=== PATIENT | male | born 1975 | race Asian ===

== ENCOUNTER 2017-08-19 11:15 | Outpatient (CLI) | payer MEDICAID | END 2017-08-19 11:16 | disposition home or self-care (01) | LOC: LAB.R 11:15 | PROVIDERS: ATTEND Family Medicine | DX: R05 Cough (principal) | CPT/HCPCS: 87275; 87276 ==

== ENCOUNTER 2017-10-26 15:26 | Emergency (ER) | payer MEDICAID ==
--- NOTE | 2017-10-26 15:54 | ED Physician Documentation ---
PD HPI UPPER EXT INJURY - Stated complaint Stated Complaint: RT THUMB PX - History obtained from History obtained from: Patient - History of Present Illness Location: Other (He fell last night going on the stairs at home and caught himself with the right hand and has severe pain at the base of the right thumb, no other injuries. He also notes a four-day history of cough, congestion, sinus pressure without fevers. He does not smoke.) Review of Systems Constitutional: denies: Fever, Chills Nose: reports: Rhinorrhea / runny nose, Congestion Cardiac: denies: Chest pain / pressure Respiratory: reports: Cough GI: denies: Abdominal Pain PD PAST MEDICAL HISTORY - Past Medical History Cardiovascular: None Respiratory: Pneumonia Psych: Anxiety - Past Surgical History Past Surgical History: No - Present Medications Home Medications: Ambulatory Orders Medication Instructions Recorded Confirmed Albuterol Sulfate [Proventil Hfa 1 - 2 puffs IH Q4H PRN #1 10/26/17 Inhaler] hfa.aer.ad HYDROcod/ACETAM 5/325 [Cresco 5/325] 1 - 2 ea PO Q6H PRN #15 tablet 10/26/17 - Allergies Allergies/Adverse Reactions: Allergies Allergy/AdvReac Type Severity Reaction Status Date / Time No Known Drug Allergies Allergy Verified 04/10/16 16:15 - Social History Does the pt smoke?: No Smoking Status: Never smoker Does the pt drink ETOH?: No Does the pt have substance abuse?: No - Immunizations Immunizations are current?: Yes - POLST Patient has POLST: No PD ED PE NORMAL - Vitals Vital signs reviewed: Yes - General General: Alert and oriented X 3, No acute distress - HEENT HEENT: PERRL, EOMI, Pharynx benign - Neck Neck: Supple, no meningeal sign, No bony TTP - Cardiac Cardiac: RRR, No murmur - Respiratory Respiratory: Other (Wheezy and rhonchorous throughout without focal findings, good air movement.) - Extremities Extremities: Other (Tender at the base of the right thumb and MCP joints with some laxity of the MCL. Neurovascularly intact at the tip of the digit.) - Neuro Neuro: Alert and oriented X 3, Normal speech Results - Vitals Vitals: Vital Signs - 24 hr 10/26/17 15:35 Temperature 36.1 C L Heart Rate 74 Respiratory 17 Rate Blood Pressure 152/67 H O2 Saturation 98 Oxygen O2 Source Room air - Rads (name of study) R hand 3v Radiology: EMP read contemporaneously (NAD) Procedures - Splint (location) R hand Splint applied by: Tech Type of splint: Fiberglass, Short arm, Thumb spica Other: Patient tolerated well, No complications, Neurovascular intact PD MEDICAL DECISION MAKING - ED course ED course: 42-year-old gentleman with right thumb injury, exam is concerning for ulnar collateral ligament injury/gamekeeper's thumb. He was placed in a thumb spica splint. He also has a URI with wheezing which is treated with albuterol, no evidence of bacterial infection. Departure - Departure Disposition: 01 Home, Self Care Clinical Impression: Wheezing, Viral disease Gamekeeper's thumb of right hand Qualifiers: Encounter type: initial encounter Qualified Code(s): S53.31XA - Traumatic rupture of right ulnar collateral ligament, initial encounter Condition: Good Record reviewed to determine appropriate education?: Yes Instructions: ED URI Viral W Wheezing Follow-Up: [facility] [Provider Group] - Within 1 week Prescriptions: Albuterol Sulfate [Proventil Hfa Inhaler] 1 - 2 puffs IH Q4H PRN #1 hfa.aer.ad PRN Reason: Cough HYDROcod/ACETAM 5/325 [Cresco 5/325] 1 - 2 ea PO Q6H PRN #15 tablet PRN Reason: Pain Comments: The albuterol inhaler should help with your cough and wheezing, the painkiller will help with the hand, is also an excellent cough suppressant. Do not drink or drive with that. Keep a fiberglass splint on and dry at all times, follow up with the orthopedic clinic within the week, call them tomorrow for an appointment. Your blood pressure was elevated today on check into the emergency department. This does not mean that you have hypertension, it is a common phenomenon to come to the emergency department and have elevated blood pressure. I recommend that you see your primary care physician within the week to have it rechecked when you are feeling better. Do not drink or drive while taking narcotic pain medication. Note that many narcotic pain relievers also contain Tylenol/acetaminophen. Please ensure that your total dose of acetaminophen from all sources does not exceed 3 g (3000 mg) per day. You may get constipated while on this medication. Take a stool softener such as Colace twice a day while you are on it. Also add an [id number] laxative such as senna or MiraLAX on any day that you do not have a bowel movement. If you received a narcotic pain medication or sedative while in the emergency department, do not drive for the next 24 hours. Forms: Activity restrictions
--- NOTE | 2017-10-26 16:21 | XRAY Preliminary Report ---
Exam: XR HAND 3 VIEW RT IMPRESSION: Normal hand radiography. [facility] SITE ID: [id number]
--- NOTE | 2017-10-26 16:23 | XRAY Report ---
EXAM: RIGHT HAND RADIOGRAPHY EXAM DATE: 10/26/2017 04:09 PM. CLINICAL HISTORY: Right thumb injury. Fall. Pain. COMPARISON: None. TECHNIQUE: 3 views. FINDINGS: Bones: Normal. No fractures or bone lesions. Joints: Normal. No subluxations. Soft Tissues: Normal. No soft tissue swelling. IMPRESSION: Normal hand radiography. [facility] Referring Provider Line: [phone] SITE ID: [id number]
[2017-10-26 16:52] VITALS: BP 139/87
== END 2017-10-26 16:51 | disposition home or self-care (01) ==
LOC: ED 15:26
DX: R06.2 Wheezing (principal); B34.8 Other viral infections of unspecified site; S53.31XA Traumatic rupture of right ulnar collateral ligament, initial encounter; W10.9XXA Fall (on) (from) unspecified stairs and steps, initial encounter; Y92.009 Unspecified place in unspecified non-institutional (private) residence as the place of occurrence of the external cause; R03.0 Elevated blood-pressure reading, without diagnosis of hypertension
CPT/HCPCS: 29125; 99283

== ENCOUNTER 2018-01-13 15:55 | Emergency (ER) | payer MEDICAID ==
[2018-01-13] MEDS ORDERED: KETOROLAC 60 MG/2 ML VIAL IM STA ×2 (17:06→17:15)
[2018-01-13] MEDS ORDERED: ALBUTEROL NEB 2.5 MG/3 ML INH STA ×2 (17:09→17:37)
--- NOTE | 2018-01-13 17:09 | ED Physician Documentation ---
History of Present Illness - Stated complaint Stated Complaint: COUGH/CONGESTION - Chief complaint Chief Complaint: Resp - History obtained from History obtained from: Patient - History of Present Illness Timing: How many weeks ago (1) Pain level max: 6 Pain level now: 5 Improved by: rest Worsened by: breathing - Additonal information Additional information: Patient is a 42-year-old male who presents to the emergency department with nasal congestion, rhinorrhea, dry cough. He also complains of right thumb pain after a fall several months ago that is still intermittently swollen. Has not followed up with anyone for this. He is taking NyQuil. Review of Systems Constitutional: denies: Fever, Chills Nose: reports: Rhinorrhea / runny nose, Congestion Respiratory: reports: Cough Skin: denies: Rash Musculoskeletal: denies: Neck pain, Back pain Neurologic: denies: Headache PD PAST MEDICAL HISTORY - Past Medical History Past Medical History: Yes Cardiovascular: None Respiratory: Pneumonia Psych: Anxiety - Past Surgical History Past Surgical History: No - Present Medications Home Medications: Ambulatory Orders Medication Instructions Recorded Confirmed Albuterol Sulf [Ventolin Hfa 1 - 2 puffs INH Q4HR PRN #1 inhaler 01/13/18 Inhaler] Benzonatate [Tessalon Perle] 100 - 200 mg PO TID PRN #30 capsule 01/13/18 Cetirizine HCl/Pseudoephedrine 1 each PO BID PRN #30 tab.er.12h 01/13/18 [Zyrtec-D Tablet] - Allergies Allergies/Adverse Reactions: Allergies Allergy/AdvReac Type Severity Reaction Status Date / Time No Known Drug Allergies Allergy Verified 01/13/18 16:06 - Social History Does the pt smoke?: No Smoking Status: Never smoker Does the pt drink ETOH?: No Does the pt have substance abuse?: No - Immunizations Immunizations are current?: Yes - POLST Patient has POLST: No PD ED PE NORMAL - Vitals Vital signs reviewed: Yes - General General: Alert and oriented X 3 - HEENT HEENT: Ears normal, Moist mucous membranes, Pharynx benign - Neck Neck: Supple, no meningeal sign - Cardiac Cardiac: RRR - Respiratory Respiratory: No respiratory distress, Other (Wheezing and rhonchi bilaterally) - Abdomen Abdomen: Soft, Non tender, Non distended - Derm Derm: Warm and dry, No rash - Extremities Extremities: Other (R thumb, increased MCP laxity, mild swelling. ) - Neuro Neuro: Alert and oriented X 3 - Psych Psych: Normal mood, Normal affect Results - Vitals Vitals: Oxygen O2 Source Room air - Rads (name of study) CXR Radiology: Prelim report reviewed, EMP read contemporaneously, See rad report ( no acute disease) r thumb xray Radiology: Prelim report reviewed, EMP read contemporaneously, See rad report ( No acute findings) PD MEDICAL DECISION MAKING - ED course Complexity details: reviewed old records, reviewed results, re-evaluated patient (Lungs are clear to auscultation bilaterally after breathing treatment) , considered differential, d/w patient, d/w family ED course: Patient is a 42-year-old male who presents to the emergency department what appears to be a viral upper respiratory infection. He is well-appearing, nontoxic. Feels better after nebulizer treatment. He also appears to have a skier's thumb/gamekeeper's thumb on the right hand. Did not follow up with anyone for this, recommend that he follow-up with his doctor for an orthopedic referral to determine if this will need surgical repair. Patient counseled regarding signs and symptoms for which I believe and urgent re-evaluation would be necessary. Patient with good understanding of and agreement to plan and is comfortable going home at this time This document was made in part using voice recognition software. While efforts are made to proofread this document, sound alike and grammatical errors may occur. Departure - Departure Disposition: 01 Home, Self Care Clinical Impression: Wheezing URI (upper respiratory infection) Qualifiers: URI type: unspecified viral URI Qualified Code(s): J06.9 - Acute upper respiratory infection, unspecified Thumb pain Qualifiers: Laterality: right Qualified Code(s): M79.644 - Pain in right finger(s) Condition: Good Instructions: Skier's Thumb, ED Viral Syndrome Follow-Up: Kwan Flores DO [Primary Care Provider] - Within 1 week (if not better) Prescriptions: Albuterol Sulf [Ventolin Hfa Inhaler] 1 - 2 puffs INH Q4HR PRN #1 inhaler PRN Reason: Shortness Of Air/Wheezing Benzonatate [Tessalon Perle] 100 - 200 mg PO TID PRN #30 capsule PRN Reason: Cough Cetirizine HCl/Pseudoephedrine [Zyrtec-D Tablet] 1 each PO BID PRN #30 tab.er.12h PRN Reason: Nasal Congestion Comments: Return if you worsen. Drink plenty of fluids and rest. You should follow-up with orthopedics about your thumb as this may require surgery. Forms: Activity restrictions Discharge Date/Time: 01/13/18 18:46
--- NOTE | 2018-01-13 17:14 | XRAY Preliminary Report ---
Exam: XR CHEST 2 VIEW X-RAY IMPRESSION: 1. Right-sided aortic arch. 2. Stable, otherwise unremarkable exam. [facility] SITE ID: [id number]
--- NOTE | 2018-01-13 17:25 | XRAY Report ---
EXAM: CHEST RADIOGRAPHY EXAM DATE: 01/13/2018 04:21 PM. CLINICAL HISTORY: History of pneumonia and cough. COMPARISON: 08/19/2017. TECHNIQUE: 2 views. FINDINGS: Lungs/Pleura: No focal opacities evident. No pleural effusion. No pneumothorax. Normal volumes. Mediastinum: Right-sided aortic arch, anatomic variant. This causes tracheal deviation to the left. Heart is normal caliber. Other: None. IMPRESSION: 1. Right-sided aortic arch. 2. Stable, otherwise unremarkable exam. [facility] Referring Provider Line: [phone] SITE ID: [id number]
--- NOTE | 2018-01-13 17:37 | XRAY Preliminary Report ---
Exam: XR FINGER(S) RT IMPRESSION: Normal digit radiography. [facility] SITE ID: [id number]
--- NOTE | 2018-01-13 17:44 | XRAY Report ---
EXAM: RIGHT THUMB DIGIT RADIOGRAPHY EXAM DATE: 01/13/2018 05:22 PM. CLINICAL HISTORY: Persistent joint pain and swelling since a fall several months ago. COMPARISON: Right hand 10/26/2017. TECHNIQUE: 3 views. FINDINGS: Bones: Normal. No fracture or bone lesion. Joints: Normal. No subluxations. Soft Tissues: Normal. No soft tissue swelling. IMPRESSION: Normal digit radiography. [facility] Referring Provider Line: [phone] SITE ID: [id number]
[2018-01-13 18:48] VITALS: BP 149/90
== END 2018-01-13 18:46 | disposition home or self-care (01) ==
LOC: ED 15:55
DX: J06.9 Acute upper respiratory infection, unspecified (principal); M79.644 Pain in right finger(s); R06.2 Wheezing
CPT/HCPCS: 71046; 73140; 94640; 99283; 99284; J7613

== ENCOUNTER 2018-09-12 10:19 | Emergency (ER) | payer MEDICAID ==
--- NOTE | 2018-09-12 11:26 | XRAY Report ---
Reason: trauma Procedure Date: 09/12/2018 Accession Number: [id number] / [id number] Procedure: XR - Hand 3 View LT CPT Code: FULL RESULT: EXAM: LEFT HAND RADIOGRAPHY EXAM DATE: 09/12/2018 11:02 AM. CLINICAL HISTORY: Injury while using a punching bag. Pain at the third MCP joint and fifth digit. COMPARISON: None. TECHNIQUE: 3 views. FINDINGS: Bones: Normal. No fractures or bone lesions. Joints: Normal. No subluxations. Soft Tissues: Mild dorsal soft tissue swelling. IMPRESSION: No acute osseous abnormality. [facility]
--- NOTE | 2018-09-12 13:02 | XRAY Report ---
Reason: injury Procedure Date: 09/12/2018 Accession Number: [id number] / [id number] Procedure: XR - Hand 3 View RT CPT Code: FULL RESULT: EXAM: RIGHT HAND RADIOGRAPHY EXAM DATE: 09/12/2018 12:50 PM. CLINICAL HISTORY: Pain and swelling first metacarpal phalangeal articulation. COMPARISON: None. TECHNIQUE: 3 views. FINDINGS: Bones: No fractures or bone lesions. Joints: No subluxations or significant degenerative change. Soft Tissues: Mild first MCP soft tissue swelling. IMPRESSION: Mild first MCP soft tissue swelling. Otherwise negative right hand. [facility]
--- NOTE | 2018-09-12 13:11 | ED Physician Documentation ---
PD HPI UPPER EXT INJURY - Stated complaint Stated Complaint: BILAT HAND PX/COLD SYMPTOMS - Chief complaint Chief Complaint: Ext Problem - Additonal information Additional information: 43-year-old male presents the emergency department with bilateral hand pain which started after using a heavy bag at the gym. The patient recently started using the heavy bag. The patient reportsGeneralized swelling and tenderness throughout his hands. The patient also reports pain in his right thumb on the dorsal side which is worse with range of motion. The patient has a history of pain in that thumb and has had cortisone shots in the past. No other injury to the wrist elbows or shoulders. Symptoms are described as moderate. No other associated symptoms. No relieving factors. Review of Systems Constitutional: denies: Fever, Fatigue Nose: denies: Congestion Skin: denies: Laceration (s) Musculoskeletal: reports: Extremity pain. denies: Neck pain, Back pain PD PAST MEDICAL HISTORY - Past Medical History Cardiovascular: None Respiratory: Pneumonia Psych: Anxiety - Past Surgical History Past Surgical History: No - Present Medications Home Medications: Ambulatory Orders Medication Instructions Recorded Confirmed Albuterol Sulf [Ventolin Hfa 1 - 2 puffs INH Q4HR PRN #1 inhaler 01/13/18 Inhaler] Benzonatate [Tessalon Perle] 100 - 200 mg PO TID PRN #30 capsule 01/13/18 Cetirizine HCl/Pseudoephedrine 1 each PO BID PRN #30 tab.er.12h 01/13/18 [Zyrtec-D Tablet] - Allergies Allergies/Adverse Reactions: Allergies Allergy/AdvReac Type Severity Reaction Status Date / Time No Known Drug Allergies Allergy Verified 01/13/18 16:06 - Social History Does the pt smoke?: No Smoking Status: Never smoker Does the pt drink ETOH?: No Does the pt have substance abuse?: No - Immunizations Immunizations are current?: Yes - POLST Patient has POLST: No PD ED PE NORMAL - General General: Alert and oriented X 3, No acute distress - HEENT HEENT: Atraumatic, PERRL, Ears normal - Extremities Extremities: No deformity, Normal ROM s pain. No: No tenderness to palpate (The patient has full active range of motion of bilateral hands, equal environmental engineering aide strength, there is no obvious deformity. The patient has mild swelling of bilateral dorsal hands. There is no erythematous changes. There is a normal radial pulse. The patient has no tenderness in the anterior snuffbox bilaterally. No pain in the forearm, elbows or shoulders bilaterally. The patient is tender to palpation along the extensor tendon of the right thumb.) - Neuro Neuro: Alert and oriented X 3, No motor deficit - Psych Psych: Normal mood Results - Vitals Vitals: Vital Signs - 24 hr 09/12/18 10:28 Temperature 36.5 C Heart Rate 58 L Respiratory 16 Rate Blood Pressure 163/87 H O2 Saturation 98 Oxygen O2 Source Room air - Rads (name of study) Hand bilateral x-ray Radiology: Final report received PD MEDICAL DECISION MAKING - ED course ED course: No fracture seen on x-ray, the patient appears appropriate for discharge and ongoing outpatient management. The patient has had cortisone shots for what most likely is a tendinitis of the thumb, I recommended that he follow back up with the orthopedic surgeon. The patient will follow up with his primary first for a referral. I discussed warning signs and recommended return to the emergency department for any worsening or concerns. Departure - Departure Disposition: 01 Home, Self Care Clinical Impression: Bilateral hand pain Condition: Good Instructions: ED Contusion Hand, Tendonitis and Tenosynovitis Follow-Up: Kwan Flores DO [Primary Care Provider] - Within 1 week (Please ask your primary care physician for referral to orthopedics) Comments: Please return to the emergency department immediately for any worsening or any concerns.
[2018-09-12 13:26] VITALS: BP 158/74
== END 2018-09-12 13:25 | disposition home or self-care (01) ==
LOC: ED 10:19
DX: M25.542 Pain in joints of left hand (principal); M25.541 Pain in joints of right hand
CPT/HCPCS: 99283

== ENCOUNTER 2018-12-29 17:30 | Outpatient (CLI) | payer MEDICAID ==
--- NOTE | 2018-12-30 10:35 | CT Report ---
Reason: CHRONIC SINUSITIS,FACIAL PAIN,NASAL OBSTRUCTION Procedure Date: 12/29/2018 Accession Number: [id number] / [id number] Procedure: CT - Sinuses CPT Code: FULL RESULT: EXAM: CT SINUS EXAM DATE: 12/29/2018 05:47 PM. HISTORY: Chronic sinusitis, facial pain, nasal obstruction. COMPARISONS: None. TECHNIQUE: Routine multi-axial CT imaging performed through the sinuses. Iodinated IV contrast: None. Reconstructions: Multiplanar reformats. In accordance with CT protocol optimization, one or more of the following dose reduction techniques were utilized for this exam: automated exposure control, adjustment of mA and/or KV based on patient size, or use of iterative reconstructive technique. FINDINGS: RIGHT Frontal: Normal. Ethmoid: Partial opacification and mucoperiosteal thickening. Maxillary: Mild mucoperiosteal thickening. Sphenoid: Normal. Drainage Pathways: The frontal recess is patent but narrowed by mucoperiosteal thickening. The ostiomeatal complex and sphenoethmoidal recess are patent and normal. LEFT Frontal: Mild partial opacification. Ethmoid: Partial opacification and mucoperiosteal thickening. Maxillary: Mild mucoperiosteal thickening. Sphenoid: Normal. Drainage Pathways: The frontal recess is partially opacified. The ostiomeatal complex and sphenoethmoidal recess are patent and normal. Nasal Cavity: Normal. No mass or significant anatomic abnormality evident. Osseous Structures: Unremarkable. Orbits: Unremarkable. Other: None. IMPRESSION: Chronic changes as described above. [facility]
== END 2018-12-29 17:31 | disposition home or self-care (01) ==
LOC: DI 17:30
PROVIDERS: ATTEND Otolaryngology
DX: J32.8 Other chronic sinusitis (principal); R51 Headache; J34.89 Other specified disorders of nose and nasal sinuses
CPT/HCPCS: 70486

== ENCOUNTER 2019-06-14 15:31 | Outpatient (CLI) | payer MEDICAID ==
--- NOTE | 2019-06-15 10:10 | XRAY Report ---
Reason: LACERATION WITHOUT FOREIGN BODY,RIGHT KNEE/INITIAL Procedure Date: 06/14/2019 Accession Number: [id number] / [id number] Procedure: WCP - Knee 3 View RT CPT Code: FULL RESULT: EXAM: RIGHT KNEE RADIOGRAPHY EXAM DATE: 06/14/2019 03:51 PM. CLINICAL HISTORY: Laceration without foreign body, right knee/initial. COMPARISON: None. TECHNIQUE: 3 views. FINDINGS: Bones: Normal. No fractures or bone lesions. Joints: Normal. No effusion. No subluxations. Soft Tissues: A 2 cm long linear radiopaque foreign body with appearance compatible with a glass shard is identified in the medial soft tissues anterior and superiorly to the knee joint, corresponding to the palpable marker. IMPRESSION: Normal knee radiography. Please note: Per phone conversation with the performing charge histotechnologist, the referring physician who was seeing the patient in clinic at the time suspected the foreign body and was made aware by the charge histotechnologist following consultation with the radiologist right away. JUS
== END 2019-06-14 15:32 | disposition home or self-care (01) ==
LOC: DI.WCP 15:31
PROVIDERS: ATTEND Family Medicine
DX: S81.021A Laceration with foreign body, right knee, initial encounter (principal)

== ENCOUNTER 2019-07-04 07:17 | Day surgery (SDC) | payer MEDICAID ==
[2019-07-04] MEDS ORDERED: MIDAZOLAM 2 MG/2 ML VIAL IVP ONE ×2 (07:18)
[2019-07-04] MEDS ORDERED: DEXAMETHASONE 4 MG/ML VIAL IVP ONE (07:18)
[2019-07-04] MEDS ORDERED: KETOROLAC 30 MG/ML VIAL IVP ONE (07:18)
[2019-07-04] MEDS ORDERED: fentaNYL 100 MCG/2 ML VIAL IVP ONE (07:18)
[2019-07-04] MEDS ORDERED: LIDOCAINE-MPF 2% 5 ML VIAL IM ONE (07:18)
[2019-07-04] MEDS ORDERED: PROPOFOL 200 MG/20 ML VIAL IVP ONE (07:18)
[2019-07-04] MEDS ORDERED: ONDANSETRON 4 MG/2 ML VIAL IVP ONE (07:18)
[2019-07-04] MEDS ORDERED: LACTATED RINGERS 1,000 ML IV ONE (07:39)
--- NOTE | 2019-07-04 08:05 | ANESTHESIA ---
Pre-Anesthesia VS, & Labs - Diagnosis Right knee FB - Procedure Excise FB right knee Vital Signs: Temp Pulse Resp BP Pulse Ox 36.2 C L 58 L 16 139/71 H 97 07/04/19 07:48 07/04/19 07:48 07/04/19 07:48 07/04/19 07:48 07/04/19 07:48 Height 73 ft Weight (kg) 2.38 kg Body Mass Index 27.4 - Lab Results Lab results reviewed: No Home Medications and Allergies Home Medications: Ambulatory Orders Ibuprofen 400 mg PO DAILY PRN 06/26/19 Ibuprofen 400 mg PO DAILY PRN 06/26/19 Allergies/Adverse Reactions: Allergies Allergy/AdvReac Type Severity Reaction Status Date / Time No Known Drug Allergies Allergy Verified 01/13/18 16:06 Anes History & Medical History - Anesthetic History Anesthesia Complications: reports: No previous complications Family history of Anesthesia Complications: Denies Family history of Malignant Hyperthermia: Denies - Medical History Cardiovascular: reports: None Pulmonary: reports: None Gastrointestinal: reports: None Urinary: reports: None Neuro: reports: None Musculoskeletal: reports: Chronic back pain Endocrine/Autoimmune: reports: None Blood Disorders: reports: None Skin: reports: None Smoking Status: Never smoker Psychosocial: reports: No issues indicated Exam General: Alert, Oriented x3 Dental: WNL Mouth Opening: Greater than 4 Fingerbreadths Neck Mobility: Normal Mallampati classification: I Thyromental Distance: greater than 6 cm Respiratory: Lungs clear Cardiovascular: Regular rate Mental/Cognitive Status: Alert/Oriented X3 Cognitive Status: Within normal limits Plan Anesthesia Type: General Consent for Procedure(s) Verified and Reviewed: Yes Code Status: Attempt Resuscitation ASA classification: 1-Healthy patient Is this case an emergency?: No
[2019-07-04] MEDS ORDERED: BUPIVACAINE 0.25% PF 30 ML VIAL ONE (08:20)
[2019-07-04] MEDS ORDERED: BUPIVACAINE 0.25%-EPI 1:200000 PF 30 ML VIAL ONE (08:38)
[2019-07-04] MEDS ORDERED: HYDROcod/ACETAM 5/325 MG TABLET PO PRN (09:43)
[2019-07-04] MEDS ORDERED: HYDROcod/ACETAM 5/325 MG TABLET ONE (10:45)
[2019-07-04 11:02] VITALS: BP 109/55
--- NOTE | 2019-07-04 11:38 | OPERATIVE REPORT ---
DATE OF SERVICE: 07/04/2019 Physician: Destiny Zuiñga MD PREOPERATIVE DIAGNOSIS: Retained foreign body (glass) intramuscular right knee. POSTOPERATIVE DIAGNOSIS: Retained foreign body (glass) intramuscular right knee. PROCEDURE: Right knee removal of glass fragment from intramuscular deep tissues. OPERATING SURGEON: Destiny Zuñiga MD ANESTHESIA: General by Tomasz Daniel. INDICATIONS FOR SURGERY: Patient is a 43-year-old male who a few months ago had a piece of glass shatter and fragments penetrate the dorsum of his knee. He was able to extract most of the glass, but his right knee remained tender over the superior medial aspect and had an area of thickening in the deep tissue, and he had intermittent pain in this area and had on x-ray evaluation a retained foreign body, which was a piece of glass intramuscular. Recommendation to him was that he undergo exploration of this area and have this glass removed. DESCRIPTION OF OPERATIVE PROCEDURE: Patient was taken to the operating room. He was given a general anesthetic. His leg was sterilely prepped and draped in standard fashion. A surgical timeout was held. Following this, a marking pen was used to define an incision through prior scar area from glass penetration. This was approximately an 1.5 inches in length, and through this incision infiltration was performed with 0.25% Marcaine with epinephrine, approximately 10 mL, infiltrating deep down into the soft tissues and into the VMO muscle, but not into the knee joint, after an adequate period of activity of the injection. The incision was made and a counterincision made for better exposure. This was directed medially. The exploration first revealed a small amount of black foreign body in the subcutaneous tissue, and then with C-arm imaging direction was taken into the VMO muscle and with some difficulty finding this needle shaped piece of glass, which was quite deep. Ultimately, the glass fragment was found and was removed, and inspection of the area failed to reveal any other fragments of glass; neither did palpation and neither did C-arm imaging. Glass fragment was placed on the back table to be given to the patient. The wound was flushed and irrigated and closure was with interrupted Vicryl sutures, subcutaneous, and interrupted Prolene suture at the skin. Sterile dressings were applied. Patient was taken to recovery room in stable condition. Estimated blood loss for the procedure was minimal. COMPLICATIONS: None. COUNTS: Sponge and needle counts correct. The size of the glass fragment was compatible with the image on x-ray, approximately 1 inch in length and shaped essentially as obelisk and appeared to match exactly the image on x-ray. TD: 07/04/2019 11:08 ELOY
== END 2019-07-04 07:18 | disposition home or self-care (01) ==
LOC: SDS 07:17
PROVIDERS: ATTEND Orthopaedic Surgery
PROC: 0KCS0ZZ Extirpation of Matter from Right Lower Leg Muscle, Open Approach (ICD-10-PCS; principal; 2019-07-04 08:30)
DX: M79.5 Residual foreign body in soft tissue (principal)
CPT/HCPCS: 27372; A9270; J7120

== ENCOUNTER 2019-10-07 07:57 | Outpatient (CLI) | payer MEDICAID ==
[2019-10-07 08:38] LABS: ALBUMIN 4.6 g/dL (3.2-5.5); ALBUMIN/GLOBULIN RATIO 1.7 (1.0-2.2); ALKALINE PHOSPHATASE 38 IU/L (42-121); ALT ALANINE AMINOTRANSFERASE 25 IU/L (10-60); AST ASPARTATE AMINOTRANSFERASE 20 IU/L (10-42); BUN - BLOOD UREA NITROGEN 19 mg/dL (6-20); CALCIUM 9.1 mg/dL (8.5-10.3); CARBON DIOXIDE - CO2 28 mmol/L (21-32); CHLORIDE 106 mmol/L (101-111); CHOL/HDL RATIO 4.3 (<5.0); CHOLESTEROL 229 mg/dL; CREATININE 0.9 mg/dL (0.6-1.2); GFR - MDRD 93 (>89); GLUCOSE 127 mg/dL (70-100); HDL CHOLESTEROL 53 mg/dL; LDL CHOLESTEROL,CALCULATED 162 mg/dL; LDL/HDL RATIO 3.1 (<3.6); SODIUM 141 mmol/L (135-145); TOTAL PROTEIN 7.3 g/dL (6.7-8.2); VLDL CHOLESTEROL 14 mg/dL
== END 2019-10-07 07:58 | disposition home or self-care (01) ==
LOC: LAB 07:57
PROVIDERS: ATTEND Family Medicine
DX: Z00.00 Encounter for general adult medical examination without abnormal findings (principal)
CPT/HCPCS: 36415; 80053; 80061; 83721

== ENCOUNTER 2019-11-21 05:58 | Emergency (ER) | payer MEDICAID ==
[2019-11-21] MEDS ORDERED: AZITHROMYCIN 250 MG TABLET PO STA (06:33)
[2019-11-21] MEDS ORDERED: CHERRY SYRUP 10 ML UDC PO ONE (06:33)
[2019-11-21] MEDS ORDERED: IPRATROPIUM/ALBUTEROL 3 ML NEB INH STA (06:33)
[2019-11-21] MEDS ORDERED: DEXAMETHASONE 10 MG/ML VIAL PO STA (06:33)
--- NOTE | 2019-11-21 06:50 | ED Physician Documentation ---
PD HPI URI - Stated complaint Stated Complaint: COUGH/FEVER/SINUS PX - Chief complaint Chief Complaint: Heent - History obtained from History obtained from: Patient - History of Present Illness Timing - onset: How many weeks ago (2) Timing duration: Weeks (2) Timing details: Gradual onset, Still present Associated symptoms: Sinus pain, Dry cough, Dyspnea Contributing factors: Sick contact Improves by: Rest, Medication Similar symptoms before: Diagnosis (sinusitis/bronchitis and viral uri) Recently seen: Clinic - Additional information Additional information: 44-year-old male with a history of allergic asthma and frequent URI has developed cough and congestion and has sinus point tenderness but is not bringing up any phlegm. He has been placed on a course of Augmentin and this did not seem to help much. He has been placed on a course of methylprednisolone and this has not helped as well. He does recall that he has been given a steroid here in the emergency department which helped immediately and he has used an inhaler previously he does feel like he could use an inhaler. Patient says he returned from the [facility] 2 weeks ago with this illness. Review of Systems Constitutional: reports: Chills, Fatigue, Sweats Eyes: denies: Decreased vision Ears: denies: Ear pain Nose: reports: Rhinorrhea / runny nose, Congestion, Sinus pressure / pain Throat: denies: Sore throat Cardiac: denies: Chest pain / pressure, Palpitations Respiratory: reports: Dyspnea, Cough, Wheezing GI: denies: Nausea, Vomiting : denies: Dysuria PD PAST MEDICAL HISTORY - Past Medical History Cardiovascular: None Respiratory: None Neuro: None Endocrine/Autoimmune: None GI: None : None HEENT: None Psych: Anxiety Musculoskeletal: Chronic back pain Derm: None - Past Surgical History Past Surgical History: No - Present Medications Home Medications: Ambulatory Orders Medication Instructions Recorded Confirmed Albuterol Sulf [Ventolin Hfa 1 - 2 puffs INH Q4HR PRN #1 inhaler 01/13/18 06/26/19 Inhaler] Cetirizine HCl/Pseudoephedrine 1 each PO BID PRN #30 tab.er.12h 01/13/18 06/26/19 [Zyrtec-D Tablet] Ibuprofen 400 mg PO DAILY PRN 06/26/19 06/26/19 Albuterol Sulf [Ventolin Hfa 1 - 2 puffs INH Q4HR PRN #1 inhaler 11/21/19 Inhaler] Azithromycin [Zithromax] 250 mg PO DAILY #4 tablet 11/21/19 dexAMETHasone [Decadron] 4 mg PO DAILY #5 tablet 11/21/19 - Allergies Allergies/Adverse Reactions: Allergies Allergy/AdvReac Type Severity Reaction Status Date / Time No Known Drug Allergies Allergy Verified 01/13/18 16:06 - Social History Does the pt smoke?: No Smoking Status: Never smoker Does the pt drink ETOH?: No Does the pt have substance abuse?: No - Immunizations Immunizations are current?: Yes - POLST Patient has POLST: No PD ED PE NORMAL - Vitals Vital signs reviewed: Yes (febrile ) - General General: Alert and oriented X 3, No acute distress, Well developed/nourished, Other (nasal quality to the voice. ) - HEENT HEENT: Atraumatic, PERRL, EOMI, Ears normal, Moist mucous membranes, Pharynx benign, Dentition benign, Other (There is maxillary sinus point tenderness bilaterally worse on the left. ) - Neck Neck: Supple, no meningeal sign, No bony TTP - Cardiac Cardiac: RRR, No murmur - Respiratory Respiratory: No respiratory distress, Clear bilaterally - Abdomen Abdomen: Soft, Non tender - Back Back: No CVA TTP, No spinal TTP - Derm Derm: Normal color, Warm and dry, No rash - Extremities Extremities: No deformity, No edema - Neuro Neuro: Alert and oriented X 3, keyboarding clerk 2-12 intact, No motor deficit, No sensory deficit, Normal speech Eye Opening: Spontaneous Motor: Obeys Commands Verbal: Oriented GCS Score: 15 - Psych Psych: Normal mood, Normal affect Results - Vitals Vitals: Vital Signs - 24 hr 11/21/19 06:06 Temperature 37.7 C H Heart Rate 92 Respiratory 18 Rate Blood Pressure 129/70 O2 Saturation 96 Oxygen O2 Source Room air PD MEDICAL DECISION MAKING - ED course Complexity details: reviewed old records, re-evaluated patient, considered differential, d/w patient ED course: 44-year-old male with frequent URI and allergic asthma has sinus point tenderness and no drainage. He does feel like he is not getting drainage and he has taken a course of methylprednisolone. He has recently started the Augmentin. He states that he does not feel he is getting any relief. I reviewed his records and found that we have placed him on dual therapy with both Augmentin and Zithromax previously and that we have used dexamethasone which is likely what has helped him in the past. He does in his chart have indications of prednisone has not helped him and we have usually prescribed dexamethasone and this has helped. Here in the emergency department he is administered a DuoNeb treatment as well as 10 mg of dexamethasone and 500 mg of a azithromycin. Departure - Departure Disposition: Home, Self Care Clinical Impression: URI (upper respiratory infection) Qualifiers: URI type: unspecified URI Qualified Code(s): J06.9 - Acute upper respiratory infection, unspecified Sinusitis Qualifiers: Sinusitis location: maxillary Chronicity: acute Recurrence: recurrent Qualified Code(s): J01.01 - Acute recurrent maxillary sinusitis Condition: Stable Instructions: ED Sinusitis Abx Tx Follow-Up: Kwan Flores DO [Primary Care Provider] - Prescriptions: Albuterol Sulf [Ventolin Hfa Inhaler] 1 - 2 puffs INH Q4HR PRN #1 inhaler PRN Reason: Shortness Of Air/Wheezing Azithromycin [Zithromax] 250 mg PO DAILY #4 tablet dexAMETHasone [Decadron] 4 mg PO DAILY #5 tablet
[2019-11-21 07:18] VITALS: BP 130/69
== END 2019-11-21 07:22 | disposition home or self-care (01) ==
LOC: ED 05:58
DX: J01.01 Acute recurrent maxillary sinusitis (principal); J06.9 Acute upper respiratory infection, unspecified; J45.909 Unspecified asthma, uncomplicated
CPT/HCPCS: 99283; 99284; A9270

== ENCOUNTER 2019-11-28 04:09 | Emergency (ER) | payer MEDICAID ==
[2019-11-28 04:14] VITALS: BP 147/96
--- NOTE | 2019-11-28 04:29 | ED Physician Documentation ---
PD [facility] HEENT - Stated complaint Stated Complaint: SOA,COUGHING - Chief complaint Chief Complaint: Heent - History obtained from History obtained from: Patient - History of Present Illness Timing - onset: How many weeks ago (3) Timing - details: Gradual onset, Waxing and waning Location: Sinuses Improves: Other (patient had significant improvement after steroids and zithromax given on last ED visit, but symptoms never completely resolved and worsened over past few days) Associated symptoms: Congestion, Headache, Cough. No: Fever Similar symptoms before: Diagnosis (sinusitis) Recently seen: Clinic, Emergency Dept - Additional information Additional information: c/o 3 weeks of sinus congestion, productive cough, wheezing, chest constriction. He was seen by PMD for this earlier this month, prescribed augmentin and robitussin AC. He was then evaluated in this ED 11/21 due to worsening symptoms, prescribed steroids and zithromax as well as albuterol MDI. Symptoms improved until the began to worsen few days ago. He saw PMD yesterday, no new rx. Review of Systems Constitutional: reports: Chills, Sweats. denies: Fever Ears: denies: Ear pain Nose: reports: Rhinorrhea / runny nose, Congestion, Sinus pressure / pain Throat: denies: Sore throat Cardiac: denies: Chest pain / pressure, Palpitations Respiratory: reports: Dyspnea, Cough, Wheezing PD PAST MEDICAL HISTORY - Past Medical History Cardiovascular: None Respiratory: None Neuro: None Endocrine/Autoimmune: None GI: None : None HEENT: None Psych: Anxiety Musculoskeletal: Chronic back pain Derm: None - Past Surgical History Past Surgical History: No - Present Medications Home Medications: Ambulatory Orders Medication Instructions Recorded Confirmed Albuterol Sulf [Ventolin Hfa 1 - 2 puffs INH Q4HR PRN #1 inhaler 01/13/18 06/26/19 Inhaler] Cetirizine HCl/Pseudoephedrine 1 each PO BID PRN #30 tab.er.12h 01/13/18 06/26/19 [Zyrtec-D Tablet] Ibuprofen 400 mg PO DAILY PRN 06/26/19 06/26/19 Albuterol Sulf [Ventolin Hfa 1 - 2 puffs INH Q4HR PRN #1 inhaler 11/21/19 Inhaler] Azithromycin [Zithromax] 250 mg PO DAILY #4 tablet 11/21/19 dexAMETHasone [Decadron] 4 mg PO DAILY #5 tablet 11/21/19 Azithromycin [Zithromax] 250 mg PO DAILY #4 tablet 11/28/19 Fluticasone [Flonase] 1 sprays KI BID #1 bottle 11/28/19 dexAMETHasone [Decadron] 4 mg PO DAILY #5 tablet 11/28/19 - Allergies Allergies/Adverse Reactions: Allergies Allergy/AdvReac Type Severity Reaction Status Date / Time No Known Drug Allergies Allergy Verified 01/13/18 16:06 - Social History Does the pt smoke?: No Smoking Status: Never smoker Does the pt drink ETOH?: No Does the pt have substance abuse?: No - Immunizations Immunizations are current?: Yes - POLST Patient has POLST: No PD ED PE NORMAL - Vitals Vital signs reviewed: Yes - General General: Alert and oriented X 3, No acute distress, Well developed/nourished - HEENT HEENT: Ears normal, Moist mucous membranes, Pharynx benign - Neck Neck: Supple, no meningeal sign - Cardiac Cardiac: RRR, No murmur - Respiratory Respiratory: No respiratory distress, Other (trace end-expiratory wheezing bilaterally but good air movement.) PD ED PE EXPANDED - HEENT HEENT: Nasal congestion Results - Vitals Vitals: Vital Signs - 24 hr 11/28/19 04:11 Temperature 37.0 C Heart Rate 83 Respiratory 18 Rate Blood Pressure 147/96 H O2 Saturation 98 Oxygen O2 Source Room air PD MEDICAL DECISION MAKING - ED course Complexity details: reviewed old records, considered differential, d/w patient ED course: c/o worsening bilateral nasal and sinus congestion, productive cough. I suspect he has ongoing sinusitis as well as bronchitis with bronchospasm. He might benefit from another course of both antibiotic as well as steroids, and these are prescribed. Departure - Departure Disposition: 01 Home, Self Care Clinical Impression: Sinusitis, Bronchitis with bronchospasm Condition: Good Instructions: ED Bronchitis Asthmatic, ED Sinusitis Abx Tx Follow-Up: Kwan Flores DO [Primary Care Provider] - Prescriptions: Azithromycin [Zithromax] 250 mg PO DAILY #4 tablet dexAMETHasone [Decadron] 4 mg PO DAILY #5 tablet Fluticasone [Flonase] 1 sprays KI BID #1 bottle Discharge Date/Time: 11/28/19 05:07
[2019-11-28] MEDS ORDERED: AZITHROMYCIN 250 MG TABLET PO STA (04:45)
[2019-11-28] MEDS ORDERED: CHERRY SYRUP 10 ML UDC PO ONE (04:45)
[2019-11-28] MEDS ORDERED: DEXAMETHASONE 10 MG/ML VIAL PO STA (04:45)
== END 2019-11-28 05:07 | disposition home or self-care (01) ==
LOC: ED 04:09
DX: J32.9 Chronic sinusitis, unspecified (principal); J40 Bronchitis, not specified as acute or chronic; J98.01 Acute bronchospasm
CPT/HCPCS: 99283; 99284; A9270

== ENCOUNTER 2020-02-12 15:01 | Outpatient (CLI) | payer MEDICAID, OTHER | END 2020-02-12 23:59 | disposition home or self-care (01) | LOC: LAB.R 15:01 | PROVIDERS: ATTEND Nurse Practitioner Family | DX: J02.0 Streptococcal pharyngitis (principal) | CPT/HCPCS: 87070 ==

== ENCOUNTER 2021-02-11 16:47 | Outpatient (CLI) | payer OTHER ==
--- NOTE | 2021-02-11 17:19 | XRAY Report ---
PROCEDURE: Abdomen 1 View X-Ray INDICATIONS: ABDOMINAL PX TECHNIQUE: 1 view of the abdomen were acquired. COMPARISON: None. FINDINGS: Surgical changes and devices: None. Bowel: No pneumoperitoneum. The bowel gas pattern is nonobstructive. Soft tissues: No masses; visualized solid organ contours appear normal in size. No suspicious abdom inal calcifications. Bones: No suspicious bony abnormalities. IMPRESSION: Abdomen without acute radiographic abnormalities. Reviewed by: Surjit Armendariz MD on 02/11/2021 5:18 PM PDT Approved by: Surjit Armendariz MD on 02/11/2021 5:18 PM PDT Station ID: [id number]
== END 2021-02-11 23:59 | disposition home or self-care (01) ==
LOC: DI.N 16:47
PROVIDERS: ATTEND Physician Assistant Medical
DX: R10.9 Unspecified abdominal pain (principal)

== ENCOUNTER 2021-02-12 18:29 | Emergency (ER) | payer OTHER ==
[2021-02-12 19:01] LABS: BASOPHILS # (AUTO) 0.1 10^3/uL (0.0-0.1); BASOPHILS % (AUTO) 0.7 %; EOSINOPHILS # (AUTO) 0.4 10^3/uL (0.0-0.7); EOSINOPHILS % (AUTO) 3.2 %; HCT - HEMATOCRIT 48.3 % (42.0-52.0); HGB - HEMOGLOBIN 15.9 g/dL (14.0-18.0); LYMPHOCYTES % (AUTO) 17.5 %; MEAN CORPUSCULAR HEMOGLOBIN 29.7 pg (27.0-31.0); MEAN CORPUSCULAR HGB CONC 32.9 g/dL (32.0-36.0); MEAN CORPUSCULAR VOLUME 90.3 fL (80.0-94.0); MEAN PLATELET VOLUME 8.5 fL (7.4-11.4); MONOCYTES # (AUTO) 0.6 10^3/uL (0.0-1.0); NEUTROPHILS # (AUTO) 8.6 10^3/uL (1.5-6.6); NEUTROPHILS % (AUTO) 73.3 %; PLT - PLATELET COUNT 286 10^3/uL (130-450); RED BLOOD COUNT 5.35 10^6/uL (4.70-6.10); RED CELL DISTRIBUTION WIDTH 13.1 % (12.0-15.0); WHITE BLOOD COUNT 11.7 x10^3/uL (4.8-10.8)
[2021-02-12 19:16] LABS: ALBUMIN 4.6 g/dL (3.2-5.5); ALBUMIN/GLOBULIN RATIO 1.8 (1.0-2.2); CALCIUM 9.2 mg/dL (8.5-10.3); POTASSIUM 4.2 mmol/L (3.5-5.0); TOTAL PROTEIN 7.2 g/dL (6.7-8.2)
--- NOTE | 2021-02-12 19:55 | ED Physician Documentation ---
History of Present Illness - Stated complaint Stated Complaint: ABD PX - Chief complaint Chief Complaint: Abd Pain - Additonal information Additional information: 45-year-old male presents the emergency department for evaluation of lower abdo shruthi pain. He reports that yesterday he began having abdominal pain cramping and the need to pass gas. He did go to the walk-in clinic where a KUB was completed. He reports that he was told he was constipated and was given magnesium citrate to take. Since taking the magnesium citrate he has had very large watery bowel movements. However he has also had increased lower abdominal pain no fevers no vomiting. No dysuria. No history of past surgical abdominal history. Denies tobacco alcohol or opiate narcotic use. Review of Systems Constitutional: reports: Reviewed and negative Eyes: reports: Reviewed and negative Ears: reports: Reviewed and negative Nose: reports: Reviewed and negative Throat: reports: Reviewed and negative Cardiac: reports: Reviewed and negative Respiratory: reports: Reviewed and negative GI: reports: Abdominal Pain, Constipation. denies: Nausea, Vomiting, Diarrhea, Hematemesis, Bloody / black stool : reports: Reviewed and negative Skin: reports: Reviewed and negative Musculoskeletal: reports: Reviewed and negative PD PAST MEDICAL HISTORY - Past Medical History Cardiovascular: None Respiratory: None Neuro: None Endocrine/Autoimmune: None GI: None : None HEENT: None Psych: Anxiety Musculoskeletal: Chronic back pain Derm: None - Past Surgical History Past Surgical History: No - Present Medications Home Medications: Ambulatory Orders Medication Instructions Recorded Confirmed polyethylene glycoL 3350 [Miralax] 17 gm PO DAILY #1 bottle 02/12/21 - Allergies Allergies/Adverse Reactions: Allergies Allergy/AdvReac Type Severity Reaction Status Date / Time No Known Drug Allergies Allergy Verified 02/12/21 18:41 - Social History Does the pt smoke?: No Smoking Status: Never smoker Does the pt drink ETOH?: No Does the pt have substance abuse?: No - Immunizations Immunizations are current?: Yes - POLST Patient has POLST: No PD ED PE EXPANDED - General General: Alert - Cardiac Cardiac: Regular Rate, Regular Rhythm, Radial strong equal, Pedal strong equal, Cap refill < 2 sec - Respiratory Respiratory: Clear to ausultation ary. No: Distress, Labored - Abdomen Abdomen: Tender to palpation (Mild tenderness to the lower abdomen without guarding or rebound. Negative McBurney's negative Maher's.) - Back Back: Normal exam. No: Normal ROM, Vertebral tenderness, Soft tissue tenderness - Derm Derm: Normal color, Warm and dry. No: Rash, Petecchiae, Purpura - Extremities Extremities: Normal, Pedal Pulses Present. No: Deformity, Tenderness, Pedal edema bilateral, Right calf TTP/cord, Left calf TTP/cord - Neuro Neuro: Alert and Oriented X 3, CNII-XII intact Results - Vitals Vitals: Vital Signs - 24 hr 02/12/21 02/12/21 02/12/21 18:42 19:19 21:54 Temperature 36.8 C 36.8 C 36.6 C Heart Rate 62 51 L Respiratory 20 18 Rate Blood Pressure 149/66 H 155/82 H O2 Saturation 98 100 Oxygen O2 Source Room air - Labs Labs: Laboratory Tests 02/12/21 02/12/21 02/12/21 18:58 18:58 21:35 WBC 11.7 H RBC 5.35 Hgb 15.9 Hct 48.3 MCV 90.3 MCH 29.7 MCHC 32.9 RDW 13.1 Plt Count 286 MPV 8.5 Neut # (Auto) 8.6 H Lymph # (Auto) 2.0 [place] # (Auto) 0.6 Eos # (Auto) 0.4 Baso # (Auto) 0.1 Absolute Nucleated RBC 0.00 Nucleated RBC % 0.0 Sodium 137 Potassium 4.2 Chloride 101 Carbon Dioxide 28 Anion Gap 8.0 BUN 17 Creatinine 1.0 Estimated GFR (MDRD) 82 L Glucose 103 H Calcium 9.2 Total Bilirubin 1.0 AST 27 ALT 24 Alkaline Phosphatase 40 L Total Protein 7.2 Albumin 4.6 Globulin 2.6 Albumin/Globulin Ratio 1.8 Lipase 30 Urine Color YELLOW Urine Clarity CLEAR Urine pH 8.0 H Ur Specific [place] 1.010 Urine Protein NEGATIVE Urine Glucose (UA) NEGATIVE Urine Ketones NEGATIVE Urine Occult Blood NEGATIVE Urine Nitrite NEGATIVE Urine Bilirubin NEGATIVE Urine Urobilinogen 0.2 (NORMAL) Ur Leukocyte Esterase NEGATIVE Ur Microscopic Review NOT INDICATED Urine Culture Comments NOT INDICATED - Rads (name of study) CT abd Radiology: Final report received (Abundant stool With no Bowel obstruction, pneumoperitoneum, ascites or hernia. Nonvisualization of the appendix.) PD MEDICAL DECISION MAKING - ED course Complexity details: reviewed results, re-evaluated patient, considered differential, d/w patient ED course: 45-year-old male presents the emergency department for evaluation of abdominal pain and constipation. He reports that yesterday afternoon he began having c ramping while at work. He presented to a walk-in clinic where KUB was obtained that did not show any acute process but was advised that they felt he was constipated. He did take a bottle of magnesium citrate and since then has had 2 or 3 fairly large watery bowel movements. All of which were nonbloody. However he continues to have abdominal, cramping and discomfort. Screening labs and electrolytes including the urine are essentially unremarkable without any worrisome abnormalities. On abdominal exam he was mildly tender without guarding or rebound in the lower abdomen. We did proceed with a CT of the abdomen That showed no acute surgical findings. He did have abundant stool in the colon. This finding was discussed with the patient. I did recommend that he continue to take MiraLAX and/or increase fiber supplementation and water to help with constipation at home. Pt did request a bottle of magnesium citrate prior to leaving, which was ordered Emergent return precautions were discussed and include fevers, suddenly severe pain, black or bloody bowel movements or failure of symptoms to resolve. Departure - Departure Disposition: 01 Home, Self Care Clinical Impression: Lower abdominal pain Constipation Qualifiers: Constipation type: unspecified constipation type Qualified Code(s): K59.00 - Constipation, unspecified Condition: Stable Record reviewed to determine appropriate education?: Yes Instructions: ED Constipation Follow-Up: Kwan Flores DO [Primary Care Provider] - Prescriptions: polyethylene glycoL 3350 [Miralax] 17 gm PO DAILY #1 bottle Comments: Cesar you were seen today in the emergency department for lower abdominal pain and constipation. The CT scan does not show any worrisome findings to suggest bowel perforation, bowel obstruction or appendicitis. However you do have a lot of stool in your colon. Constipation can be very uncomfortable. You were given a bottle of magnesium citrate to drink. I expect that this will promote large very healthy bowel movements over the next 12 to 24 hours. I would also like you to take MiraLAX once or twice a day for the next 2 to 3 days until you have 3 or 4 watery bowel movements and are free of abdominal pain. It is important to increase your water and fiber intake to prevent constipation in the future. Discuss this ED visit with your primary care provider. If at any point you develop fevers, have a suddenly severe or different lower abdominal pain, have black or bloody bowel movements please return immediately to the ER
[2021-02-12] MEDS ORDERED: IOVERSOL 320 100 ML VIAL IVP ONE (20:21)
[2021-02-12] MEDS ORDERED: SODIUM CHLORIDE 0.9% 1,000 ML IV STA (21:31)
[2021-02-12 21:46] LABS: BILIRUBIN,URINE NEGATIVE (NEGATIVE); CLARITY,URINE CLEAR (CLEAR); GLUCOSE, URINE (UA) NEGATIVE (NEGATIVE); KETONES,URINE (UA) NEGATIVE (NEGATIVE); LEUKOCYTE ESTERASE, URINE NEGATIVE (NEGATIVE); NITRITE,URINE NEGATIVE (NEGATIVE); OCCULT BLOOD,URINE NEGATIVE (NEGATIVE); PROTEIN,URINE NEGATIVE (NEGATIVE); UROBILINOGEN,URINE 0.2 (NORMAL) E.U./dL (NORMAL)
[2021-02-12 21:55] VITALS: BP 155/82
[2021-02-12] MEDS ORDERED: MAGNESIUM CITRATE 296 ML BOTTLE PO STA (22:10)
[2021-02-13] MEDS ORDERED: IOVERSOL 320 100 ML VIAL IVP ONE (00:07)
--- NOTE | 2021-02-13 09:04 | CT Report ---
PROCEDURE: Abdomen/Pelvis W INDICATIONS: lower abdominal pain CONTRAST: IV CONTRAST: Optiray 320 ml: 100 PO CONTRAST: *NO PO CONTRAST TECHNIQUE: After the administration of IV contrast, 5 mm thick sections acquired from the diaphragms to the symp hysis. 5 mm thick coronal and sagittal reformats were acquired. For radiation dose reduction, the f ollowing was used: automated exposure control, adjustment of mA and/or kV according to patient size. COMPARISON: None. FINDINGS: Image quality: Excellent. ABDOMEN: Lung bases: Lung bases are clear. Heart size is normal. Solid organs: Liver and spleen are normal in size and enhancement. Gallbladder is partially contrac mirna Biliary system is non dilated. Pancreas enhances normally. No adrenal nodules. Kidneys demons trate normal size and enhancement, without hydronephrosis. Peritoneum and bowel: Bowel loops demonstrate normal wall thickness and caliber. Appendix not seen. No evidence of appendicitis. No free fluid or air. Nodes and vessels: No retroperitoneal or mesenteric adenopathy by size criteria. Aorta and inferior vena cava are normal in size. Miscellaneous: No ventral hernias. PELVIS: Genitourinary: Bladder wall thickness is normal. Miscellaneous: No inguinal hernias or adenopathy. Bones: No suspicious bony lesions. No vertebral body compression fractures. IMPRESSION: No acute process. Appendix not seen. No evidence of appendicitis. Concordant with prelim inary interpretation. Reviewed by: Marv Quan MD on 02/13/2021 9:03 AM PDT Approved by: Marv Quan MD on 02/13/2021 9:03 AM PDT Station ID: [id number]
== END 2021-02-12 22:23 | disposition home or self-care (01) ==
LOC: ED 18:29
DX: K59.00 Constipation, unspecified (principal); R10.30 Lower abdominal pain, unspecified
CPT/HCPCS: 36415; 74177; 80053; 81003; 83690; 85025; 99284; A9270; Q9967; 81001; 87086

== ENCOUNTER 2021-03-28 18:10 | Outpatient (CLI) | payer OTHER ==
[2021-03-28 18:31] LABS: BASOPHILS # (AUTO) 0.1 10^3/uL (0.0-0.1); BASOPHILS % (AUTO) 0.9 %; EOSINOPHILS # (AUTO) 0.5 10^3/uL (0.0-0.7); EOSINOPHILS % (AUTO) 7.4 %; HCT - HEMATOCRIT 43.3 % (42.0-52.0); HGB - HEMOGLOBIN 14.9 g/dL (14.0-18.0); LYMPHOCYTES # (AUTO) 2.6 10^3/uL (1.5-3.5); LYMPHOCYTES % (AUTO) 40.5 %; MEAN CORPUSCULAR HEMOGLOBIN 29.9 pg (27.0-31.0); MEAN CORPUSCULAR HGB CONC 34.4 g/dL (32.0-36.0); MEAN CORPUSCULAR VOLUME 86.8 fL (80.0-94.0); MEAN PLATELET VOLUME 8.9 fL (7.4-11.4); MONOCYTES # (AUTO) 0.4 10^3/uL (0.0-1.0); MONOCYTES % (AUTO) 6.8 %; NEUTROPHILS # (AUTO) 2.8 10^3/uL (1.5-6.6); NEUTROPHILS % (AUTO) 44.1 %; PLT - PLATELET COUNT 230 10^3/uL (130-450); RED BLOOD COUNT 4.99 10^6/uL (4.70-6.10); RED CELL DISTRIBUTION WIDTH 11.7 % (12.0-15.0); WHITE BLOOD COUNT 6.5 x10^3/uL (4.8-10.8)
[2021-03-28 18:58] LABS: THYROID STIMULATING HORMONE 0.75 uIU/mL (0.34-5.60)
== END 2021-03-28 18:11 | disposition home or self-care (01) ==
LOC: LAB 18:10
PROVIDERS: ATTEND Physician Assistant Medical
DX: R68.82 Decreased libido (principal)
CPT/HCPCS: 36415; 84153; 84403; 84443; 85025

== ENCOUNTER 2021-04-09 07:48 | Outpatient (CLI) | payer OTHER | END 2021-04-09 23:59 | disposition home or self-care (01) | LOC: LAB.WCP 07:48 | PROVIDERS: ATTEND Nurse Practitioner Family | DX: R68.82 Decreased libido (principal) | CPT/HCPCS: 36415; 84403 ==

== ENCOUNTER 2021-04-09 08:00 | Outpatient (CLI) | payer OTHER ==
--- NOTE | 2021-04-09 14:40 | XRAY Report ---
PROCEDURE: Thoracic Spine 3 View INDICATIONS: Neck and back pain TECHNIQUE: 3 views of the thoracic spine were acquired. COMPARISON: None. FINDINGS: Bones: No fractures or dislocations. No suspicious bony lesions. Soft tissues: No paravertebral stripe thickening. IMPRESSION: No abnormality identified. Reviewed by: Trevor Escoto MD on 04/09/2021 2:39 PM PDT Approved by: Trevor Escoto MD on 04/09/2021 2:39 PM PDT Station ID: [id number]
--- NOTE | 2021-04-09 14:41 | XRAY Report ---
PROCEDURE: Cervical Spine 2 View INDICATIONS: NECK AND BACK PX TECHNIQUE: 3 view(s) of the cervical spine were acquired. COMPARISON: None. FINDINGS: Bones: No fracture or dislocation. Normal cervical spine vertebral body height and alignment. Degener ative changes in the mid cervical spine, most pronounced at C6-C7, characterized by disc height loss and posterior osteophytic ridging of the endplates along with uncovertebral and facet hypertrophy. Soft tissues: No prevertebral soft tissue swelling. IMPRESSION: Multilevel multifactorial degenerative changes, worst at C6-C7. No acute finding. Reviewed by: Trevor Escoto MD on 04/09/2021 2:39 PM PDT Approved by: Trevor Escoto MD on 04/09/2021 2:39 PM PDT Station ID: [id number]
== END 2021-04-09 23:59 | disposition home or self-care (01) ==
LOC: DI.N 08:00
PROVIDERS: ATTEND Family Medicine
DX: M47.812 Spondylosis without myelopathy or radiculopathy, cervical region (principal); M50.323 Other cervical disc degeneration at C6-C7 level

== ENCOUNTER 2021-04-18 08:00 | Outpatient (CLI) | payer OTHER | END 2021-04-18 08:01 | disposition home or self-care (01) | LOC: LAB.WCP 08:00 | PROVIDERS: ATTEND Nurse Practitioner Family | DX: R68.82 Decreased libido (principal) | CPT/HCPCS: 36415; 80053; 80061; 83001; 83002; 83721; 84403 ==

== ENCOUNTER 2021-04-19 09:17 | Outpatient (CLI) | payer OTHER ==
[2021-04-19 09:46] LABS: ALBUMIN 4.4 g/dL (3.2-5.5); ALBUMIN/GLOBULIN RATIO 1.6 (1.0-2.2); ALKALINE PHOSPHATASE 41 IU/L (42-121); ALT ALANINE AMINOTRANSFERASE 19 IU/L (10-60); AST ASPARTATE AMINOTRANSFERASE 20 IU/L (10-42); BILIRUBIN,TOTAL 0.7 mg/dL (0.2-1.0); BUN - BLOOD UREA NITROGEN 23 mg/dL (6-20); CALCIUM 9.3 mg/dL (8.5-10.3); CARBON DIOXIDE - CO2 28 mmol/L (21-32); CHLORIDE 100 mmol/L (101-111); CHOL/HDL RATIO 3.9 (<5.0); CHOLESTEROL 200 mg/dL; GFR - MDRD 82 (>89); GLUCOSE 96 mg/dL (70-100); HDL CHOLESTEROL 51 mg/dL; LDL CHOLESTEROL,CALCULATED 128 mg/dL; LDL/HDL RATIO 2.5 (<3.6); POTASSIUM 4.4 mmol/L (3.5-5.0); SODIUM 137 mmol/L (135-145); TOTAL PROTEIN 7.1 g/dL (6.7-8.2); TRIGLYCERIDES 103 mg/dL; VLDL CHOLESTEROL 21 mg/dL
[2021-04-19 10:26] LABS: FOLLICLE STIMULATING HORMONE 4.63 mIU/mL
[2021-04-19 10:27] LABS: LUTEINIZING HORMONE 4.2 mIU/mL
== END 2021-04-19 09:18 | disposition home or self-care (01) ==
LOC: LAB 09:17
PROVIDERS: ATTEND Nurse Practitioner Family
DX: E78.5 Hyperlipidemia, unspecified (principal); E29.1 Testicular hypofunction
CPT/HCPCS: 36415; 80053; 80061; 83001; 83002; 83721

== ENCOUNTER 2021-07-04 13:48 | Outpatient (CLI) | payer OTHER | END 2021-07-04 13:49 | disposition EMS.NT | LOC: EMS 13:48 | DX: F41.9 Anxiety disorder, unspecified (principal); R23.2 Flushing ==